=== PATIENT | female | born 1965 | race Caucasian/White ===

== ENCOUNTER 2018-03-25 05:20 | Emergency (ER) | payer BC, OTHER ==
[~2018-03-25] VITALS: Wt 90.6 kg
[~2018-03-25 05:20] MED LIST: HYOS0.1297 SL; PANT40TA3 PO
[2018-03-25] MEDS ORDERED: morphine 4 MG/ML VIAL IV STA (05:52)
[2018-03-25] MEDS ORDERED: ONDANSETRON 4 MG INJ IV STA (05:52)
[2018-03-25] MEDS ORDERED: SOD CHLORIDE 0.9% 1,000 ML IV STA (05:52)
--- NOTE | 2018-03-25 06:22 | ERD ---
ER Documentation Chief Complaint Chief Complaint AP, BODY PAINS, NAUSEA X'S 2 MONTHS HPI This is a 52-year-old previously healthy female who presents to the emergency department complaining of abdominal pain that is been intermittent for the past 2 months but progressively worsened over the past 48 hours. The pain is a sharp shooting pain in the left lower quadrant does not radiate to the back. She has had nausea but denies any emesis. She denies any fevers shaking or chills. She is a diffuse myalgias. She denies a productive or nonproductive cough. She denies any frequency urgency or dysuria. She denies any recent travel or prolonged immobilization. She indicates that roughly 4 years ago she had similar onset of pain and was diagnosed with diverticulitis. She was placed on antibiotics and states she has had no recurrence of her symptoms since then ROS All systems reviewed and are negative except as per history of present illness. Medications Home Meds Active Scripts Naproxen* (Naprosyn*) 500 Mg Tablet, 500 MG PO BID PRN for PAIN AND/OR INFLAMMATION, #30 TAB Prov:JEWELS TAY MD 03/25/18 Docusate Sodium* (Colace*) 100 Mg Capsule, 100 MG PO TID, #30 CAP Prov:JEWELS TAY MD 03/25/18 Hydrocodone/Acetaminophen ([place] 5-325 Tablet) 1 Each Tablet, 1 TAB PO Q6H PRN for PAIN, #7 TAB Prov:JEWELS TAY MD 03/25/18 Reported Medications Atorvastatin Calcium (Atorvastatin Calcium) 10 Mg Tablet, 10 MG PO QHS, #30 TAB 03/25/18 Discontinued Reported Medications Pantoprazole* (Protonix*) 40 Mg Tablet.dr, 40 MG PO DAILY, TAB 03/12/14 Hyoscyamine Sulfate* (Hyoscyamine Sulfate*) 0.125 Mg Tab.subl, 0.125 MG SL QID PRN for PAIN, TAB 03/12/14 Allergies Allergies: Coded Allergies: No Known Allergy (Unverified , 03/12/14) PMhx/Soc History of Surgery: Yes (right leg, stomach) Anesthesia Reaction: No Hx Neurological Disorder: No Hx Respiratory Disorders: No Hx Cardiac Disorders: Yes (hld) Hx Psychiatric Problems: No Hx Miscellaneous Medical Probl: No Hx Alcohol Use: No Hx Substance Use: No Hx Tobacco Use: No Smoking Status: Never smoker Physical Exam Vitals Vital Signs Date Temp Pulse Resp B/P (MAP) Pulse Ox O2 O2 Flow FiO2 Time Delivery Rate 03/25/18 98.0 70 14 150/74 100 Room Air 09:14 (99) 03/25/18 97.4 65 13 130/71 100 Room Air 06:30 (90) 03/25/18 97.0 81 20 157/86 96 05:23 (109) Physical Exam Constitutional:Well-developed. Well-nourished. HEENT:Normocephalic. Atraumatic.Pupils were equal round reactive to light. Moist mucous membranes.No tonsillar exudates. Neck: No nuchal rigidity. No lymphadenopathy. No posterior cervical spine tenderness or step-offs. Respiratory: Not using accessory muscles of respiration.Lungs were clear to auscultation bilaterally. No rhonchi. No rales. No wheezing. Cardiovascular: Regular rate regular rhythm.No murmurs. No rubs were appreciated.S1, S2 normal. Distal pulses are palpable 2+ bilaterally. GI: Abdomen was soft. Left lower quadrant tenderness. Non Distended. No pulsatile abdominal masses or bruits. No rebound. No guarding. Bowel sounds were present and normal. Muscle skeletal: Full range of motion of both the upper and lower extremities bilaterally.Normal muscle tone.No assymetrical calf tenderness or swelling. Skin: No petechia, no purpura. No lesions on the palms or the soles of the feet. No maculopapular rash. NEURO: Patient was alert, awake, orientated x3.No facial droop. Gait observed and normal with no ataxia.Speech had regular rate and rhythm. No focal neurological deficits. Result Diagram: 03/25/18 0635 03/25/18 0736 Results 24 hrs Laboratory Tests Test 03/25/18 06:35 03/25/18 07:30 03/25/18 07:36 White Blood Count 4.6 10^3/ul Red Blood Count 4.44 10^6/ul Hemoglobin 12.8 g/dl Hematocrit 38.6 % Mean Corpuscular Volume 86.9 fl Mean Corpuscular Hemoglobin 28.8 pg Mean Corpuscular 33.2 g/dl Hemoglobin Concent Red Cell Distribution Width 13.6 % Platelet Count 363 10^3/UL Mean Platelet Volume 9.7 fl Immature Granulocytes % 0.200 % Neutrophils % 46.6 % Lymphocytes % 39.8 % Monocytes % 8.8 % Eosinophils % 3.7 % Basophils % 0.9 % Nucleated Red Blood Cells % 0.0 /100WBC Immature Granulocytes # 0.010 10^3/ul Neutrophils # 2.1 10^3/ul Lymphocytes # 1.8 10^3/ul Monocytes # 0.4 10^3/ul Eosinophils # 0.2 10^3/ul Basophils # 0.0 10^3/ul Nucleated Red Blood Cells # 0.0 10^3/ul Urine Color YELLOW Urine Clarity CLEAR Urine pH 7.0 Urine Specific [place] 1.009 Urine Ketones NEGATIVE mg/dL Urine Nitrite NEGATIVE mg/dL Urine Bilirubin NEGATIVE mg/dL Urine Urobilinogen NEGATIVE mg/dL Urine Leukocyte Esterase NEGATIVE Srinivasa/ul Urine Hemoglobin NEGATIVE mg/dL Urine Glucose NEGATIVE mg/dL Urine Total Protein NEGATIVE mg/dl Prothrombin Time 12.5 Sec Prothrombin Time Ratio 1.0 INR International 0.92 Normalized Ratio Activated Partial Thromboplast 28.1 Sec Time Sodium Level 141 mmol/L Potassium Level 4.0 mmol/L Chloride Level 108 mmol/L Carbon Dioxide Level 27 mmol/L Anion Gap 6 Blood Urea Nitrogen 10 mg/dl Creatinine 0.60 mg/dl Est Glomerular Filtrat > 60 mL/min Rate mL/min Glucose Level 114 mg/dl Calcium Level 9.2 mg/dl Total Bilirubin 0.2 mg/dl Direct Bilirubin 0.00 mg/dl Indirect Bilirubin 0.2 mg/dl Aspartate Amino 53 IU/L Transf (AST/SGOT) Alanine 70 IU/L Aminotransferase (ALT/SGPT) Alkaline Phosphatase 132 IU/L Troponin I < 0.012 ng/ml Total Protein 8.2 g/dl Albumin 4.2 g/dl Globulin 4.00 g/dl Albumin/Globulin Ratio 1.05 Amylase Level 59 U/L Lipase 75 U/L Current Medications Medications Dose Sig/Judy Start Time Status Last (Trade) Ordered Route PRN Stop Time Admin Dose Reason Admin Sodium 1,000 ml @ Q1H STAT 03/25/18 DC 03/25/18 Chloride 1,000 mls/hr IV 05:52 06:50 03/25/18 06:51 Morphine 4 mg ONCE STAT 03/25/18 DC Sulfate IV 05:52 (morphine) 03/25/18 05:53 Ondansetron 4 mg ONCE STAT 03/25/18 DC 03/25/18 HCl (Zofran IV 05:52 06:50 Inj) 03/25/18 05:53 IV Flush 10 ml STK-MED 03/25/18 DC 03/25/18 (NS 10 ml) ONCE .ROUTE 07:54 08:44 03/25/18 07:55 Sodium 100 ml @ ud STK-MED 03/25/18 DC 03/25/18 Chloride ONCE .ROUTE 07:54 08:44 03/25/18 07:55 Iohexol 150 ml STK-MED 03/25/18 DC 03/25/18 (Omnipaque ONCE .ROUTE 07:54 08:44 300mg/ ml) 03/25/18 07:55 Procedures/MDM This patient presented to the emergency department with abdominal pain and was seen and evaluated by myself. My differential diagnosis included but was not limited to abdominal aortic aneurysm, appendicitis, pancreatitis, perforated peptic ulcer, perforated viscus, Boerhaaves syndrome or visceral pain such as diverticulitis, DKA, esophagitis, hepatitis or bowel obstruction. The patient was placed on a environmental monitoring technician, continuous pulse oximetry, and IV access was established by nursing staff. The patient was reviewed using intravenous morphine but did take Zofran for nausea. 12 Lead EKG tracing ordered and reviewed by myself showed: Normal sinus rhythm of 61 bpm and no arrhythmia. AR interval normal. QRS duration normal. No ST segment elevation No ST segment depression. No changes consistent with acute ischemia. I obtained a CT scan of the patient's abdomen reviewed by the radiologist myself and indicated the followin. No acute process in the imaged abdomen or pelvis. 2. Diverticulosis of the descending and sigmoid colon. No associated inflammatory changes to indicate acute diverticulitis. 3. Small hiatal hernia. 4. Left adrenal adenoma unchanged. 5. 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 Minimal grade 1 anterolisthesis at L4-5 and grade II anterolisthesis at L5-S1. I did feel the patient can be safely discharged home. She was given analgesic medication which included 5 tablets of [place] and Naprosyn for analgesia control. She was given Colace is a stool softener. I felt her symptoms were result of diverticulosis. There is no severe electrolyte abnormalities or evidence of sepsis. Patient again was refusing analgesic medication as she stated shortly after arrival to the emergency department her pain had improved. The patient was discharged home in fair condition. They were instructed to return to the emergency department at any time if there was any worsening of their condition. The patient stated they would follow up with their PCP in the next 24-48 hours to initiate a suitable medication regimen under the care of their PCP as well as to allow their PCP to monitor any drug reactions. The patient was discharged home with prescriptions after they gave informed consent to the new medication. They were also fully informed by myself on the adverse effects and adverse drug interactions in order to provide adequate safeguards to prevent possible adverse reactions to medications. Departure Diagnosis: Primary Impression: Diverticulosis Diverticulosis site: diverticulosis of large intestine Diverticulosis bleeding: diverticulosis without bleeding Qualified Codes: K57.30 - Diverticulosis of large intestine without perforation or abscess without bleeding Condition: JEWELS Guzmán MD Mar 25, 2018 06:22
[2018-03-25] MEDS ORDERED: ATOR10TA65 PO (07:12)
[2018-03-25] MEDS ORDERED: SOD CHLORIDE 0.9% 100 ML ONE (07:54)
[2018-03-25] MEDS ORDERED: IOHEXOL 300MG/ML 150 ML BTL ONE (07:54)
[2018-03-25] MEDS ORDERED: NAPR-985 PO (09:11)
[2018-03-25] MEDS ORDERED: DOCU-144 PO (09:11)
[2018-03-25] MEDS ORDERED: HYDR-4011 PO (09:11)
[2018-03-25 09:14] VITALS: BP 150/74; PULSE 70; RESP 14
== END 2018-03-25 09:20 | disposition home or self-care (01) ==
LOC: E/R 05:20
DX: K57.30 Diverticulosis of large intestine without perforation or abscess without bleeding (principal)
CPT/HCPCS: 74177; 80053; 81003; 82150; 83690; 84484; 85025; 85610; 85730; 87086; 93005; 96361; 96374; 99285; J2405; J7030; Q9967; Z7610